=== PATIENT | male | born 1995 | race African-American/Black ===

== ENCOUNTER 2020-10-04 03:26 | Inpatient (IN) ==
[2020-10-04 03:52] LABS: Bilirubin,Urine Negative (Negative); Blood,Urine Negative (Negative); Clarity,Urine Clear (Clear); Color,Urine Colorless (Yellow); Glucose,Urine (UA) Normal (Normal); Ketones,Urine Negative (Negative); Leukocyte Esterase,Urine Negative (Negative); Nitrite,Urine Negative (Negative); PH,Urine 6.5 pH Units (5.0-8.0); Protein,Urine Negative (Neg-Trace); Specific Gravity,Urine 1.009 (1.010-1.025); Urobilinogen,Urine Normal (Normal)
[2020-10-04 04:05] LABS: Amphetamine Screen,Urine Negative ng/mL (Cutoff=1000); Barbiturate Screen,Urine Negative ng/mL (Cutoff=200); Benzodiazepines Screen,Urine Negative ng/mL (Cutoff=200); Cannabinoid Screen,Urine Negative ng/mL (Cutoff = 50); Cocaine Screen,Urine Negative ng/mL (Cutoff= 300); Opiate Screen,Urine Positive ng/mL (Cutoff=300); Phencyclidine Screen,Urine Negative ng/mL (Cutoff=25)
[2020-10-04] MEDS ORDERED: hydrOXYzine pamoate 25 MG CAPSULE PO PRN (08:11)
[2020-10-04] MEDS ORDERED: *HR* LORazepam 2 MG/ML VIAL IM PRN (08:11)
[2020-10-04] MEDS ORDERED: Mag Hydrox/Al Hydrox/Simeth 30 ML UDC PO PRN (08:11)
[2020-10-04] MEDS ORDERED: *HR* LORazepam 1 MG TABLET PO PRN (08:11)
[2020-10-04] MEDS ORDERED: MOM Conc 10 ML UD.LIQ PO PRN (08:11)
[2020-10-04] MEDS ORDERED: haloperidoL 5 MG TABLET PO PRN (08:11)
[2020-10-04] MEDS ORDERED: Haloperidol Lactate 5 MG/ML VIAL IM PRN (08:11)
[2020-10-04 08:44] LABS: Adenovirus Not Detected (Not Detect); Bordetella Pertussis Not Detected (Not Detect); Chlamydophila pneumoniae Not Detected (Not Detect); Coronavirus 229E Not Detected (Not Detect); Coronavirus HKU1 Not Detected (Not Detect); Coronavirus NL63 Not Detected (Not Detect); Coronavirus OC43 Not Detected (Not Detect); Human Metapneumovirus Not Detected (Not Detect); Human Rhinovirus/Enterovirus Not Detected (Not Detect); Influenza A Subtype 2009 H1 Not Detected (Not Detect); Influenza B Not Detected (Not Detect); Mycoplasma pneumoniae Not Detected (Not Detect); Parainfluenza Virus 1 Not Detected (Not Detect); Parainfluenza Virus 2 Not Detected (Not Detect); Parainfluenza Virus 3 Not Detected (Not Detect); Parainfluenza Virus 4 Not Detected (Not Detect); Respiratory Syncytial Virus Not Detected (Not Detect); SARS-CoV-2 Not Detected (Not Detect)
[2020-10-04] MEDS: Nicotine 21 MG PATCH.TD24 TD SCH (13:41)
[2020-10-04] MEDS ORDERED: ARIPiprazole 5 MG TABLET PO SCH (21:00)
[2020-10-04] MEDS: traZODone 50 MG TABLET PO PRN (21:51)
[2020-10-05] MEDS: Nicotine 21 MG PATCH.TD24 TD SCH (09:50)
[2020-10-05] MEDS: ARIPiprazole 10 MG TABLET PO SCH (21:59)
[2020-10-06] MEDS: ARIPiprazole 10 MG TABLET PO SCH (21:24)
[2020-10-07] MEDS: ARIPiprazole 10 MG TABLET PO SCH (21:22)
[2020-10-07] MEDS: traZODone 50 MG TABLET PO PRN (21:54)
[2020-10-08] MEDS: Acetaminophen 325 MG TABLET PO PRN (12:57)
[2020-10-08] MEDS ORDERED: Ibuprofen 800 MG TABLET PO PRN (13:42)
[2020-10-08] MEDS: traZODone 50 MG TABLET PO PRN (20:40)
[2020-10-08] MEDS: ARIPiprazole 10 MG TABLET PO SCH (20:40)
[2020-10-09] MEDS: Acetaminophen 325 MG TABLET PO PRN (20:22)
[2020-10-09] MEDS: ARIPiprazole 10 MG TABLET PO SCH (20:23)
[2020-10-10] MEDS: ARIPiprazole 10 MG TABLET PO SCH (21:09)
[2020-10-10] MEDS: traZODone 50 MG TABLET PO PRN (21:10)
[2020-10-11 09:27] VITALS: BP 139/81
== END 2020-10-11 18:30 | disposition home or self-care (01) | DRG 750 ==
LOC: EMEROOARM 03:26 → 1ANU 09:05
PROVIDERS: ADMIT Psychiatry & Neurology Psychiatry; ATTEND Psychiatry & Neurology Psychiatry

== ENCOUNTER 2021-05-21 07:36 | Inpatient (IN) ==
[2021-05-21 08:46] LABS: Basophils % 0.4 %; Eosinophils # 0.2 K/mcL (0.0-0.6); Eosinophils % 2.5 %; Hematocrit 44.2 % (37.5-50.1); Hemoglobin 15.5 g/dL (12.9-16.9); Immature Granulocytes % 0.1 % (0-4); Lymphocytes # 2.3 K/mcL (0.6-4.6); Lymphocytes % 28.9 %; Mean Corpuscular HGB Conc 35.1 g/dL (31.6-35.5); Mean Corpuscular Hemoglobin 32.4 pg (28.0-33.3); Mean Corpuscular Volume 92.5 fL (83.0-100.0); Mean Platelet Volume 10.8 fL (9.4-12.4); Monocytes # 0.8 K/mcL (0.0-1.3); Monocytes % 9.8 %; Neutrophils # 4.7 K/mcL (1.6-8.9); Platelet Count 220 K/mcL (140-400); Red Blood Count 4.78 M/mcL (4.19-5.50); Red Cell Distribution Width 11.8 % (11.5-14.5); Segmented Neutrophils % 58.3 %; White Blood Count 8.1 K/mcL (4.3-11.1)
[2021-05-21 09:03] LABS: Acetaminophen < 10 mcg/mL (10-20); BUN/Creatinine Ratio 14 (6-26); Blood Urea Nitrogen 12 mg/dL (6-20); Calcium 9.6 mg/dL (8.6-10.3); Carbon Dioxide 24 mEq/L (23-29); Chloride 105 mEq/L (98-107); Chol/HDL Ratio 2.4 (0-4.9); Cholesterol 127 mg/dL (< 200); Ethanol < 10 mg/dL (Less than 10); Glucose 107 mg/dL (70-105); HDL Cholesterol 53 mg/dL (40-59); LDL Cholesterol,Calculated 63 mg/dL (< 100); Osmolality,Calculated 286 (280-300); Potassium 3.4 mEq/L (3.5-5.1); Salicylate < 2.5 mg/dL (15.0-30.0); Sodium 138 mEq/L (136-145); Triglycerides 53 mg/dL (< 150); eGFR For African Americans > 60 (> 60); eGFR For Non-African Americans > 60 (> 60)
[2021-05-21 10:00] LABS: Estimated Average Glucose 100 mg/dl; Hemoglobin A1C 5.1 %
[2021-05-21 10:02] LABS: Bilirubin,Urine Negative (Negative); Blood,Urine Negative (Negative); Clarity,Urine Clear (Clear); Color,Urine Colorless (Yellow); Glucose,Urine (UA) Normal (Normal); Ketones,Urine Negative (Negative); Leukocyte Esterase,Urine Negative (Negative); Nitrite,Urine Negative (Negative); Protein,Urine Negative (Neg-Trace); Specific Gravity,Urine 1.009 (1.010-1.025); Urobilinogen,Urine Normal (Normal)
[2021-05-21 10:12] LABS: Amphetamine Screen,Urine Negative ng/mL (Cutoff=1000); Barbiturate Screen,Urine Negative ng/mL (Cutoff=200); Benzodiazepines Screen,Urine Negative ng/mL (Cutoff=200); Cannabinoid Screen,Urine Negative ng/mL (Cutoff = 50); Cocaine Screen,Urine Negative ng/mL (Cutoff= 300); Opiate Screen,Urine Negative ng/mL (Cutoff=300); Phencyclidine Screen,Urine Negative ng/mL (Cutoff=25)
[2021-05-21 14:32] LABS: Influenza A PCR Negative (Negative); Influenza B PCR Negative (Negative); Resp. Syncytial Virus PCR Negative (Negative)
[2021-05-21 14:33] LABS: SARS-CoV-2 by PCR (In House) Negative (Negative)
[2021-05-21] MEDS ORDERED: Ibuprofen 400 MG TABLET PO PRN (14:41)
[2021-05-21] MEDS ORDERED: Haloperidol Lactate 5 MG/ML VIAL IM PRN (14:41)
[2021-05-21] MEDS ORDERED: haloperidoL 5 MG TABLET PO PRN (14:41)
[2021-05-21] MEDS ORDERED: QUEtiapine Fumarate 25 MG TABLET PO PRN (14:41)
[2021-05-21] MEDS ORDERED: *HR* LORazepam 1 MG TABLET PO PRN (14:41)
[2021-05-21] MEDS ORDERED: *HR* LORazepam 2 MG/ML VIAL IM PRN (14:41)
[2021-05-21] MEDS: hydrOXYzine pamoate 25 MG CAPSULE PO PRN (16:53)
[2021-05-22] MEDS ORDERED: Mag Hydrox/Al Hydrox/Simeth 30 ML UDC PO PRN (09:30)
[2021-05-22] MEDS ORDERED: MOM Conc 10 ML UD.LIQ PO PRN (09:30)
[2021-05-22] MEDS ORDERED: ARIPiprazole 5 MG TABLET PO SCH (21:00)
[2021-05-23] MEDS: ARIPiprazole 10 MG TABLET PO SCH (21:28)
[2021-05-24] MEDS: ARIPiprazole 10 MG TABLET PO SCH (20:19)
[2021-05-24] MEDS: hydrOXYzine pamoate 25 MG CAPSULE PO PRN (20:23)
[2021-05-25] MEDS: ARIPiprazole 10 MG TABLET PO SCH (20:13)
[2021-05-25] MEDS: hydrOXYzine pamoate 25 MG CAPSULE PO PRN (20:39)
[2021-05-26 09:44] VITALS: BP 126/82; PULSE 97; TEMP 98.5; O2SAT 98
[2021-05-26] MEDS ORDERED: FLU Vac QV 21-22 (6Month+)/PF 0.5 ML SYRINGE IM ONE (12:19)
== END 2021-05-26 16:40 | disposition home or self-care (01) | DRG 750 ==
LOC: EMEROOARM 07:36 → 1ANU 14:50
PROVIDERS: ADMIT Psychiatry & Neurology Psychiatry; ATTEND Psychiatry & Neurology Psychiatry